=== PATIENT | male | born 1995 | race Caucasian/White ===

== ENCOUNTER 2017-09-02 03:53 | Inpatient (IN) ==
[2017-09-02] MEDS ORDERED: Diphtheria/Tetanus/Pertussis Vaccine Inj 0.5 ML Syringe IM ONE (04:15)
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
[2017-09-02 04:55] LABS: Baso % (Auto) 0.2 % (0.0-2.0); Hematocrit 42.1 % (39.0-51.0); Hemoglobin 14.4 gm/dL (13.0-17.0); Lymph # (Auto) 0.5 th/mm3 (1.0-4.8); Lymph % (Auto) 2.9 % (9.0-44.0); Mean Corpuscular HGB Conc 34.2 % (32.0-36.0); Mean Corpuscular Volume 87.8 fL (80.0-100.0); Mean Platelet Volume 7.5 fL (7.0-11.0); Mono % (Auto) 5.6 % (0.0-8.0); Neut % (Auto) 91.3 % (16.0-70.0); Platelet Count 200 th/mm3 (150-450); Red Cell Distribution Width 13.8 % (11.6-17.2); White Blood Count 17.5 th/mm3 (4.0-11.0)
[2017-09-02 05:11] LABS: Anion Gap 6 meq/L (5-15); Blood Urea Nitrogen 14 mg/dL (7-18); Calcium 9.2 mg/dL (8.5-10.1); Carbon Dioxide 29.7 meq/L (21.0-32.0); Chloride 103 meq/L (98-107); Glomerular Filtration Rate Greater Than 89 mL/min (>89); Glucose,Random 131 mg/dL (74-106); Potassium 4.3 meq/L (3.5-5.1); Sodium 139 meq/L (136-145)
[2017-09-02] MEDS ORDERED: Acetaminophen 325 MG Tablet PO ONE (05:24)
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
[2017-09-02] MEDS ORDERED: Morphine Sulfate Inj 2 MG/ML Vial IV.PUSH PRN (06:57)
--- NOTE | 2017-09-02 07:42 | XR ---
EXAM DATE: 09/02/2017 7:23 AM EDT AGE/SEX: 22 years / Male INDICATIONS: Pulmonary contusion. CLINICAL DATA: This is the patient's subsequent encounter. Patient reports that signs and symptoms h ave been present for 1 day and indicates a pain score of 0/10. MEDICAL/SURGICAL HISTORY: None. None. COMPARISON: No prior exams available for comparison. FINDINGS: The lungs are clear without infiltrate, nodule, or mass. There is no appreciable pleural effusion fo r technique. Heart and mediastinum are unremarkable. CONCLUSION: No acute cardiopulmonary disease. Electronically signed by: Bartolo King MD 09/02/2017 7:41 AM EDT
[2017-09-02] MEDS ORDERED: Docusate Sodium 100 MG Capsule PO SCH (09:00)
[2017-09-02] MEDS ORDERED: Pantoprazole Inj 40 MG Vial IV.PUSH SCH (09:00)
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
== END 2017-09-02 22:05 | disposition home or self-care (01) ==
LOC: NEPE 03:53 → NEDA 04:43 → NEPGCP 08:04
PROVIDERS: ADMIT Surgery; ATTEND Surgery